=== PATIENT | male | born 1960 | race Caucasian/White ===

== ENCOUNTER 2016-04-09 05:58 | Day surgery (SDC) | payer OTHER ==
[2016-04-09] MEDS ORDERED: LIDOCAINE W/ SODIUM BICARB 0.5 ML SYR ONE (06:01)
[2016-04-09] MEDS ORDERED: Lactated Ringers 1,000 ML PRIMARY IV ONE ×2 (06:01→08:32)
[2016-04-09] MEDS ORDERED: ceFAZolin Inj 2gm (Premix) 50 ML IV ONE (06:01)
[2016-04-09] MEDS ORDERED: IPRATROPIUM/ALBUTEROL SULFATE 3 ML NEB NEB ONE ×2 (06:56→07:05)
[2016-04-09] MEDS ORDERED: NORMAL SALINE 10 ML SYRINGE FLUSH IVP PRN ×2 (06:56→09:08)
[2016-04-09] MEDS ORDERED: fentaNYL Inj 100 MCG/2 ML VIAL IVP PRN (06:56)
[2016-04-09] MEDS ORDERED: ONDANSETRON 4 MG/2 ML VIAL IVP PRN ×2 (06:56→09:08)
[2016-04-09] MEDS ORDERED: HYDROmorphone 2 MG/1 ML IVP PRN (06:56)
[2016-04-09] MEDS ORDERED: Ondansetron ODT Tab 8 MG TAB PO PRN (06:56)
[2016-04-09] MEDS ORDERED: ATROPINE SULFATE 0.4 MG/1 ML VIAL IVP PRN (06:56)
[2016-04-09] MEDS ORDERED: Lactated Ringers 1,000 ML PRIMARY IV SCH ×2 (07:00→09:15)
[2016-04-09] MEDS ORDERED: Acetaminophen 1000mg Inj 100 ML IV ONE (07:18)
[2016-04-09] MEDS ORDERED: fentaNYL Inj 250 MCG/5 ML VIAL ONE (07:30)
[2016-04-09] MEDS ORDERED: MIDAZOLAM 5 MG/1 ML ONE (07:30)
[2016-04-09] MEDS ORDERED: BETAMET ACET/BETAMET NA PH 6 MG/1 ML - 5 ML ONE (07:34)
[2016-04-09] MEDS ORDERED: EPINEPHrine Inj (1:1,000) 30mg/30ml vial ONE (07:34)
[2016-04-09] MEDS ORDERED: Ropivacaine 0.2% VIAL 20 ML ONE (07:34)
[2016-04-09] MEDS ORDERED: oxyCODONE IR Tab 5 MG TAB PO ONE ×2 (07:56→09:29)
[2016-04-09] MEDS ORDERED: KETAMINE 100 MG/1 ML - 5 ML ONE (08:07)
[2016-04-09] MEDS ORDERED: KETOROLAC 30 MG/1 ML VIAL ONE (08:40)
[2016-04-09] MEDS ORDERED: DEXAMETHASONE PF 10 MG/1 ML VIAL ONE (08:44)
[2016-04-09] MEDS ORDERED: HYDROmorphone 2 MG/1 ML ONE (08:49)
[2016-04-09] MEDS ORDERED: MORPHINE SULFATE 2 MG/1 ML IVP PRN (09:08)
[2016-04-09] MEDS ORDERED: HYDROcodone-APAP 7.5 MG-325 MG TABLET PO PRN (09:08)
[2016-04-09] MEDS ORDERED: KETOROLAC 30 MG/1 ML VIAL IVP PRN (09:08)
[2016-04-09 11:11] VITALS: RESP 18
[2016-04-09 11:13] VITALS: TEMP 97
--- NOTE | 2016-04-09 16:49 | OPS CRUTCH ---
Referral Reason: Knee Cryo Cuff O: The patient was issued a Cryo-Cuff and instructed in its proper use and care. P: No further therapy is indicated at this time. MTDD
== END 2016-04-09 10:34 | disposition home or self-care (01) ==
LOC: SDSC 05:58
PROVIDERS: ATTEND Orthopaedic Surgery
DX: S83.232A Complex tear of medial meniscus, current injury, left knee, initial encounter (principal); M65.862 Other synovitis and tenosynovitis, left lower leg
CPT/HCPCS: 29876; 29881; 94640; J0131; J0171; J0690; J0702; J1885; J2704; J2795; J3010; J7620; J1100; J1170; J2250; J7120

== ENCOUNTER 2016-04-16 10:30 | Emergency (ER) | payer SELFPAY ==
[2016-04-16] MEDS ORDERED: ONDANSETRON 4 MG/2 ML VIAL IVP ONE (10:48)
[2016-04-16] MEDS ORDERED: NORMAL SALINE 10 ML SYRINGE FLUSH IVP PRN (10:48)
[2016-04-16] MEDS ORDERED: Pantoprazole Inj 40 MG in Normal Saline Flush 10 ML IVP ONE (10:50)
[2016-04-16] MEDS: Sodium Chloride 0.9% 1,000 ML PRIMARY IV ONE ×2 (10:56→11:25)
--- NOTE | 2016-04-16 11:01 | PDOC ---
General Adult HPI - General Chief Complaint: Nausea / Vomiting / Diarrhea Stated Complaint: DIARRHEA, HIGH BLOOD PRESSURE Date Seen by Provider: 04/16/16 Time Seen by Provider: 10:45 Source: POSITIVE: Patient Exam Limitations: POSITIVE: No limitations Nurse's Notes Reviewed & Considered: Yes - History of Present Illness Initial Comment: The patient is a 55-year-old male who presents to the emergency department with blood pressure concerns and continued diarrhea. He states that he underwent a orthoscopic knee surgery per Dr. Jauregui last Friday. He states that the surgery went well and he has not really had any problems with his knee since surgery. His pain has been minimal and he has not required any pain medication for the past 2 or 3 days. He does however report that he ate some chicken noodle soup that was sent home with him from the hospital on Friday. Shortly afterward he developed upset stomach and onset of diarrhea. He states initially he was having watery black diarrhea. He has been going frequently since then. He has been able to drink water however really has not been able to eat anything since then. He tried eating a peanut butter sandwich this morning and subsequently vomited. He states that today the stool is more watery and less black. He did take some Pepto-Bismol a couple of days ago however the black stool started prior to that. He also has had some subjective fevers and chills at home. This morning he had some shaking chills. He also reports vague abdominal discomfort that comes and goes. Today he checked his blood pressure and it was varying between 110 and 140s and his pulse was elevated. He reports some shortness of breath however denies any current chest pain. He states a couple days ago he had some pain across his lower ribs. He denies any increased pain or swelling in his legs. He has not had any prior abdominal surgeries. He does report that he was started on an antibiotic for treatment of a sinus infection the day prior to his knee surgery. In addition he was having a gout flare prior to and around the time of surgery. He has been taking indomethacin for treatment of his gout. In addition he has been taking ibuprofen 800 mg 3 times a day. He is not have any known history of stomach ulcers. He does report that he has been drinking a lot of water and continues to urinate frequently. He does not have any known history of diabetes or heart disease. Have you received a tetanus shot in the past 10 years?: No - Patient Home Medications Home Medications: Home Medications Aspirin [Aspir 81] 1 tab PO BID tab 12/10/13 Cefuroxime Axetil [Cefuroxime] 500 mg PO BID #20 tab 04/08/16 HYDROcodone/APAP 7.5/325 Tab [[place] 7.5/325 Tab] 1 - 2 tab PO Q4H PRN #50 tab 04/09/16 Oxymetazoline Nasal Spr 0.05% [Afrin Nasal [place] 0.05%] 45 spray NASAL BID 04/09 Ibuprofen 800 mg PO TID PRN 04/16/16 Indomethacin 50 mg PO TID 04/16/16 Omeprazole 20 mg PO BID #30 cap 04/16/16 - Patient Allergies Allergies/Adverse Reactions: Allergies Allergy/AdvReac Type Severity Reaction Status Date / Time No Known Allergies Allergy Verified 04/16/16 10:40 Past Medical History - heen HEENT History: Chipped or Loose Teeth Additional HEENT History: PT MISSING SEVERAL TEETH/RIGHT SIDE LOWER CHIPPED TOOTH WITH CAVITIES. Cardiovascular History: Other (please comment) Additional Cardiovasular History: PT WAS TOLD 2 YRS AGO THAT THE ANESTHESIA SAW A "BLIP" ON THE SCREEN AND TOLD HAD A KS BUT NOTHING ELSE WAS DONE AND NO REFERRAL TO HEART DOCTOR. Respiratory History: Snoring Additional Respiratory History: PNEUMONIA IN THE PAST USUALLY AFTER THE WINTER. STATES HAD CHEST COLD OF SOME KIND LAST WEEK. STILL A LITTLE COUGH RESIDUAL. Gastrointestinal History: Denies History Genitourinary History: Denies History Endocrine History: Denies History Musculoskeletal History: Arthritis, Back Pain Prosthesis or Implant: No Additional Musculoskeletal History: LUMBAR BACK SURGERY Neurological History: Denies History Blood Disorders: Denies History Psychiatric History: Denies History History of Sexually Transmitted Diseases: No Cancer History: Denies History History of MDRO: No History of Other Communicable Diseases: No Tobacco Use: Current Every Day Smoker (1 pack per day) Alcohol Use: Occasionally Substance Use Type: None Previous Surgical History: Yes Type / Date of Surgery: LUMBAR DISC SURGERY / RIGHT KNEE SCOPE/ ABSCESS OF BUTTOCKS/TONSILS/L RCR Anesthesia Reactions: No Malignant Hyperthermia: No Significant Family History: Heart disease Additional Family History: Father and Brother both of [place] Past Medical History Reviewed: Reviewed - No Changes ROS - Limitations ROS Limitations: No Limitations Constitution: REPORTS: Chills, Fever Cardiovascular: REPORTS: Chest Pain (No current chest pain, he does report some pain across his ribs off-and-on the past couple days), Blood Pressure Problem ( Blood pressure was elevated at home). DENIES: Heart Racing, Heart Palpitations , Edema Respiratory: REPORTS: Shortness Of Breath. DENIES: Cough Non Productive, Cough Productive, Hurts To Breathe Neurological: REPORTS: Headache (Mild headache) Gastrointestinal: REPORTS: Abdominal Pain, Nausea, Vomitting (1 today), Diarrhea, Black Stools (Stools have had black appearing chunks mixed in the watery stool, more watery and yellow today) Endocrine: REPORTS: Fatigue Musculoskeletal: DENIES: Lower Extremity Swelling Genitourinary: DENIES: Dysuria, Difficulty Urinating Eyes: REPORTS: Vision Changes (He reports some blurred vision recently) ENT: REPORTS: Denies Symptoms, Other (Problems with sinus infection and congestion currently on antibiotics and Mucinex) Skin: DENIES: Rash General Adult Exam - General Appearance General Appearance: POSITIVE: Alert, Cooperative, No Acute Distress - HEENT HEENT: POSITIVE: Head Inspection Nml, Eyes Inspection Nml, Ears Inspection Nml, PERRL, EOMI - Neck Neck: POSITIVE: Normal Inspection. NEGATIVE: Lymphadenopathy - Respiratory Respiratory: POSITIVE: No Respiratory Distress, Breath Sounds Normal - Cardiovascular Cardiovascular: POSITIVE: Regular Rate & Rhythm, No Murmur Peripheral Pulses: Dorsalis-pedis (R): 2+, Dorsalis-pedis (L): 2+ - Abdomen Abdomen: Soft: (All Quadrants), Normal Bowel Sounds: (All Quadrants), No Guarding: (All Quadrants), No Rebound: (All Quadrants), No Palpabale Mass: (All Quadrants), No Distention: (All Quadrants) Additional Abdominal Details: Does have some mild tenderness in the left lower quadrant with no palpable mass , no guarding or rebound tenderness - Skin Skin: POSITIVE: Normal Color, No Rash - Extremities Extremity: Normal ROM: (All Extremities), Normal Inspection: (All Extremities), Joint Effusion: (RUE) Additional Extremities Details: Examination the left leg reveals bandages in place from recent arthroscopic surgery, there is no surrounding erythema or induration, some mild bruising extending up to the medial thigh - Neurological / Psychological Neurological: 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 He does however have an ascending thoracic aortic aneurysm measuring 5.3 cm with no evidence of dissection or rupture. CT of the abdomen and pelvis reveals a few scattered diverticulum with no evidence of acute diverticulitis or any other acute abnormality per radiologist. Lab Results Reviewed: Yes Lab Results:: Laboratory Results 04/16/16 04/16/16 Range/Units 11:07 12:17 WBC 22.76 H (4.8-10.8) 10^3/uL RBC 5.49 (4.70-6.10) 10^6/uL Hgb 16.9 (14.0-18.0) g/dL Hct 46.7 (42.0-52.0) % MCV 85.1 (80-90) FL MCH 30.8 (27-31) PG MCHC 36.2 (33-37) g/dL RDW Std Deviation 42.2 (39-50) fL RDW Coeff of Basil 13.8 (11.5-14.5) % Plt Count 204 (140-350) 10*3/uL MPV 10.2 (7.4-12.2) FL Immature Gran % (Auto) 0.7 (0-5) % Neut % (Auto) 81.6 H (50-80) % Lymph % (Auto) 5.1 L (10-50) % [place] % (Auto) 12.0 (5-15) % Eos % (Auto) 0.5 (0-8) % Baso % (Auto) 0.1 (0-1) % Immature Gran # (Auto) 0.17 10*3/UL Neut # (Auto) 18.53 10*3/UL Lymph # (Auto) 1.17 10*3/uL [place] # (Auto) 2.74 H (0.3-0.8) 10*3/UL Eos # (Auto) 0.12 10*3/UL Baso # (Auto) 0.03 10*3/UL WBC Morphology Comment Normal morphology (NORM) Plt Morphology Comment Normal morphology (NORM) RBC Morph Comment Normal morphology (NORM) D-Dimer 0.64 H (0.00-0.59) mg/L Sodium 130 L (135-145) meq/L Potassium 4.0 (3.8-5.2) meq/L Chloride 101 (98-112) meq/L Carbon Dioxide 17 L (23-33) meq/L Anion Gap 12 (5-20) BUN 17 (7-22) mg/dL Creatinine 1.0 (0.70-1.50) mg/dL Estimated GFR > 60 (>60 ml/min/1.73m(2)) BUN/Creatinine Ratio 17.00 (6-20) Glucose 100 (78-110) mg/dL Calculated Osmolality 271.0 (267-292) mOsm/kg Lactic Acid 1.5 (0.70-2.10) MMOL/L Calcium 9.3 (8.7-10.7) mg/dL Magnesium 1.7 (1.6-2.4) mg/dL Total Bilirubin 1.6 H (0.3-1.2) mg/dL AST 34 (21-57) IU/L ALT 37 (21-72) IU/L Alkaline Phosphatase 74 (38-126) IU/L Troponin I < 0.012 (< 0.040) ng/mL C-Reactive Protein 5.7 H (0.0-0.9) mg/dL Total Protein 7.7 (6.1-8.0) g/dL Albumin 4.4 (3.5-4.8) g/dL Globulin 3.3 (2.50-4.10) g/dL Albumin/Globulin Ratio 1.30 (1.3-2.0) mg/g Amylase 111 H (30-110) U/L Lipase 127 (23-300) IU/L Ur Collection Type Voided specimen Urine Color Yellow Urine Clarity Clear (CLEAR) Urine pH 5.5 (5.0-8.5) Ur Specific [place] <=1.005 (1.005-1.030) Urine Protein Negative (NEG) mg/dl Urine Glucose (UA) Negative (NEG) mg/dL Urine Ketones Negative (NEG) Urine Occult Blood Trace-intact H (NEG) Urine Nitrate Negative (NEG) Urine Bilirubin Negative (NEG) Urine Urobilinogen 0.2 (0.2) EU/dL Ur Leukocyte Esterase Negative (NEG) Urine RBC 0-1 (NONE) /hpf Urine WBC 0-1 (NONE) Ur Squamous Epith Cells Few (NONE) Ur Renal Epithelial Cell None (NONE) Urine Crystals None Urine Bacteria None (NONE) Urine Casts None (NONE) Urine Mucus None (NONE) Urine Trichomonas None (NONE) Urine Yeast None (NONE) Ur Culture Indicated? Culture not set - Patient's Progress MDM / ED Course: Blood cultures and lactate were obtained with IV start. The patient received 1 L bolus of normal saline as well as Zofran 4 mg IV and Protonix 40 mg IV. Bedside blood sugar was 82. He was having some continued headache and received morphine 2 mg IV. His headache resolved and overall after fluids and Zofran he was feeling significantly better. Lab work revealed a significantly elevated white count at 22,000 and his sodium is low at 130. He was unable to provide a stool specimen here in the emergency department. CT scan was done for PE protocol secondary to elevated d-dimer, recent surgery and tachycardia associated with shortness of breath on arrival. This was negative for PE however did reveal an incidental descending thoracic aneurysm measuring 5.3 cm with no evidence of rupture or dissection. CT scan of the abdomen and pelvis revealed a few scattered diverticulum with no evidence of acute diverticulitis or any other acute abnormality per radiologist. These findings were discussed with the patient. Because of his significantly elevated white count, clinical dehydration and hyponatremia I did recommend that the patient be admitted to the hospital. The patient stated that "that was not going to happen". I did discuss the patient with Dr. Álvarez who is the patient's primary care physician. He will be able to see the patient in follow-up in the next couple of days. Stool studies including C. difficile, Giardia, cryptosporidium, stool culture will be obtained as an outpatient. Antibiotics will be held pending these studies. In addition the patient likely has some component of gastritis related to his use of indomethacin combined with ibuprofen. He was advised to discontinue this combination and take only ibuprofen or only indomethacin if needed with food. He was also started on omeprazole 20 mg twice a day for 2 weeks. He is advised to return to the emergency room if he develops increased abdominal pain, dehydration, any worsening or change in symptoms. He will follow-up with Dr. Álvarez in the next couple of days for reevaluation as well as for referral for his thoracic aortic aneurysm. - Consult Counseled: POSITIVE: Patient, Family, RE: Lab Results, RE: Radiology Results, RE : DX, RE: Need for F/U Patient Care Time - Estimated PCT Patient Care Time (In Minutes): 50 Vital Signs - Recent Vital Signs Vital Signs: Vital Signs (Last 8 hours) Temp Pulse Resp BP BP Pulse Ox 04/16/16 11:31 100 129/76 90 04/16/16 10:35 98.9 F 140 H 22 148/121 93 - VS Reviewed Vital Signs Reviewed: Yes Discharge Clinical Impression: Abdominal pain, Diarrhea, Dehydration, Gastritis, Leukocytosis, Hyponatremia, Thoracic aortic aneurysm Condition: Fair Prescriptions / Orders: Omeprazole 20 mg PO BID #30 cap Patient Instructions Given at Discharge: Gastritis (ED), Dehydration (ED), Thoracic Aortic Aneurysm (ED), Acute Diarrhea (ED), Acute Abdominal Pain (ED) Additional Instructions: The cause of your current diarrhea and abdominal pain remains unclear. It is possible her some component of gastritis and ulcer related to taking the Indocin along with ibuprofen. In addition it is possible there is some type of bacterial infection causing the diarrhea and this will be tested for with the stool study. You should bring your stool back to the hospital for evaluation. There was also some evidence of dehydration and low sodium likely related to the increased diarrhea. He will be started on omeprazole 20 mg twice a day which is a strong an acid medicine. You may require further antibiotic treatment depending on what your stool cultures show. I did recommend that she be admitted to the hospital for continued treatment. Since you are going home I would strongly encourage you to return to the emergency room if you develop increased abdominal pain, worsening dehydration, fever or any other worsening symptoms. I have spoken with Dr. Álvarez and he will be expecting to see you for follow-up sometime in the next couple of days. The CAT scan of your chest did not reveal any evidence of blood clot. You did however have a thoracic aortic aneurysm which is a dilation of the blood vessel coming out of your heart. This may require surgical repair given its size. Dr. Álvarez will be referring you to a specialist to have this evaluated. This finding does not have anything to do with your current symptoms. You should return to the emergency room if he developed chest pain, back pain. Follow Up With: SUNSHINE ÁLVAREZ [Primary Care Provider] -
--- NOTE | 2016-04-16 11:10 | EKG ---
[address] [address] Measurements Intervals [place] Rate: 101 P: 6 AR: 140 QRS: 55 QRSD: 88 T: 48 QT: 324 QTc: 382 Interpretive Statements SINUS TACHYCARDIA NONSPECIFIC T-WAVE ABNORMALITY ABNORMAL RHYTHM ECG Compared to ECG 03/25/2016 09:12:38 T-wave abnormality now present Sinus rhythm no longer present Electronically Signed On 04-16-16 11:24:02 [facility] by Brock Mitchell [email or web address]
[2016-04-16 11:16] VITALS: RESP 22; TEMP 98.9
[2016-04-16 11:16] LABS: BASOPHILS # (AUTO) 0.03 10*3/UL; BASOPHILS % (AUTO) 0.1 % (0-1); EOSINOPHILS % (AUTO) 0.5 % (0-8); HEMATOCRIT 46.7 % (42.0-52.0); HEMOGLOBIN 16.9 g/dL (14.0-18.0); IMM GRAN % (AUTO) 0.7 % (0-5); IMM GRAN# (AUTO) 0.17 10*3/UL; LYMPHOCYTES # (AUTO) 1.17 10*3/uL; LYMPHOCYTES % (AUTO) 5.1 % (10-50); MEAN CORPUSCULAR HEMOGLOBIN 30.8 PG (27-31); MEAN CORPUSCULAR HGB CONC 36.2 g/dL (33-37); MEAN PLATELET VOLUME 10.2 FL (7.4-12.2); MONOCYTES # (AUTO) 2.74 10*3/UL (0.3-0.8); NEUTROPHILS # (AUTO) 18.53 10*3/UL; NEUTROPHILS % (AUTO) 81.6 % (50-80); RDW COEFFICIENT OF VARIATION 13.8 % (11.5-14.5); RED BLOOD COUNT 5.49 10^6/uL (4.70-6.10); WHITE BLOOD COUNT 22.76 10^3/uL (4.8-10.8)
[2016-04-16] MEDS ORDERED: MORPHINE SULFATE 2 MG/1 ML IVP ONE (11:23)
[2016-04-16 11:27] LABS: AMYLASE 111 U/L (30-110); ASPARTATE AMINO TRANSFERASE 34 IU/L (21-57); BILIRUBIN,TOTAL 1.6 mg/dL (0.3-1.2); BLOOD UREA NITROGEN 17 mg/dL (7-22); C-REACTIVE PROTEIN 5.7 mg/dL (0.0-0.9); CALCIUM 9.3 mg/dL (8.7-10.7); CHLORIDE 101 meq/L (98-112); EST GLOMERULAR FILTRATION > 60 (>60 ml/min/1.73m(2)); GLUCOSE 100 mg/dL (78-110); LACTATE 1.5 MMOL/L (0.70-2.10); MAGNESIUM 1.7 mg/dL (1.6-2.4); SODIUM 130 meq/L (135-145); TOTAL PROTEIN 7.7 g/dL (6.1-8.0)
[2016-04-16 11:33] LABS: PLATELET MORPHOLOGY COMMENT NORMAL MORPHOLOGY (NORM)
[2016-04-16 12:23] LABS: BILIRUBIN,URINE NEGATIVE (NEG); CLARITY,URINE CLEAR (CLEAR); GLUCOSE, URINE (UA) NEGATIVE (NEG); LEUKOCYTE ESTERASE ,URINE NEGATIVE (NEG); NITRATE,URINE NEGATIVE (NEG); OCCULT BLOOD,URINE Trace-intact (NEG); PH,URINE 5.5 (5.0-8.5); PROTEIN,URINE NEGATIVE (NEG); UROBILINOGEN,URINE 0.2 EU/dL (0.2)
[2016-04-16 12:39] LABS: URINE SAMPLE TYPE VOIDED SPECIMEN
[2016-04-16 12:40] LABS: RBC,URINE 0-1 /hpf; SQUAMOUS EPITHELIAL CELL,UR FEW; WBC,URINE 0-1
--- NOTE | 2016-04-16 13:17 | DI ---
History: Abdominal pain, leukocytosis, diarrhea. Procedure: Study performed in axial projection from the heart to the pubic symphysis. The patient rec eived intravenously. Dose report CT DI of 19.2, DLP 1054. Prior study: None. Findings: No pulmonary nodules are identified. There is a metallic foreign object in the left angely us muscle, possibly surgical or foreign object. No focal bony lesions identified. Left-sided fat only inguinal hernia seen on multiple images. There are a few colonic diverticula. No evidence of diverticular abscess identified. No free air obse rved. Terminal ileum is unremarkable. Appendix is not seen with confidence. No evidence of inflammation rig ht lower quadrant. Small bowel loops normal Liver spleen adrenal glands pancreas unremarkable. Gallbladder free of inflammation or visible fillin g defect. Both kidneys appear normal. No mass stone or obstruction identified. Small esophageal hiatal hernia. Impression: No evidence of inflammation or acute process. Small esophageal hiatal hernia Small metallic foreign object in the left upper thigh. Left fat only inguinal hernia
--- NOTE | 2016-04-16 13:29 | DI ---
History: Shortness of breath, elevated d-dimer. The study was performed in axial projection with coronal reconstruction from the data set. Contrast b olus with rapid sequence imaging and MDP. Dose profile: See abdomen pelvis CT scan report Findings: There is clear evidence of an ascending aortic aneurysm. Maximum sagittal diameter this rou nd aneurysm is 5.3 cm. No dissection component observed. The descending thoracic aorta appears normal in caliber. Regarding the pulmonary arteries, no embolic material is identified on either side. Regarding lung window settings, no focal infiltration is identified nor is a nodule observed. The heart is not enlarged. No mediastinal adenopathy present. Impression: Aneurysmal dilatation of the ascending thoracic aorta. Suggest elective consultation with thoracic surgeon. No CT evidence of pulmonary emboli or focal pulmonary parenchymal abnormalities. Bony structures are intact
[2016-04-16] MEDS ORDERED: Sodium Chloride 0.9% 1,000 ML ONE (17:59)
== END 2016-04-16 13:49 | disposition home or self-care (01) ==
LOC: ER 10:30
DX: K29.00 Acute gastritis without bleeding (principal); R11.2 Nausea with vomiting, unspecified; I10 Essential (primary) hypertension; R51 Headache; R10.84 Generalized abdominal pain; E87.1 Hypo-osmolality and hyponatremia; E86.0 Dehydration; I71.2 Thoracic aortic aneurysm, without rupture; D72.829 Elevated white blood cell count, unspecified; R19.7 Diarrhea, unspecified
CPT/HCPCS: 71275; 74177; 80053; 81001; 81003; 82150; 82948; 83605; 83690; 83735; 84484; 85025; 85379; 86140; 87040; 87046; 87328; 87329; 87493; 93005; 93010; 96361; 96374; 96375; 99284; J2270; J2405; J3490; J7030

== ENCOUNTER 2016-07-29 12:55 | Emergency (ER) | payer SELFPAY ==
[2016-07-29] MEDS ORDERED: HYDRALAZINE 20 MG/1 ML IVP ONE (13:14)
[2016-07-29] MEDS ORDERED: Sodium Chloride 0.9% 1,000 ML PRIMARY IV ONE (13:18)
[2016-07-29 13:20] LABS: BASOPHILS # (AUTO) 0.08 10*3/UL; BASOPHILS % (AUTO) 0.6 % (0-1); EOSINOPHILS # (AUTO) 0.12 10*3/UL; EOSINOPHILS % (AUTO) 0.9 % (0-8); HEMATOCRIT 47.4 % (42.0-52.0); HEMOGLOBIN 16.1 g/dL (14.0-18.0); LYMPHOCYTES # (AUTO) 3.26 10*3/uL; MEAN CORPUSCULAR HEMOGLOBIN 30.4 PG (27-31); MEAN CORPUSCULAR VOLUME 89.4 FL (80-90); MEAN PLATELET VOLUME 9.7 FL (7.4-12.2); MONOCYTES # (AUTO) 1.28 10*3/UL (0.3-0.8); MONOCYTES % (AUTO) 9.7 % (5-15); NEUTROPHILS # (AUTO) 8.27 10*3/UL; NEUTROPHILS % (AUTO) 62.6 % (50-80)
[2016-07-29 13:21] VITALS: RESP 18; TEMP 96.1
[2016-07-29 13:21] LABS: PLATELET MORPHOLOGY COMMENT NORMAL MORPHOLOGY (NORM); RBC MORPHOLOGY COMMENT NORMAL MORPHOLOGY (NORM); WBC MORPHOLOGY COMMENT NORMAL MORPHOLOGY (NORM)
[2016-07-29 13:27] LABS: BLOOD UREA NITROGEN 13 mg/dL (7-22); BUN/CREATININE RATIO 14.44 (6-20); CALCIUM 9.2 mg/dL (8.7-10.7); EST GLOMERULAR FILTRATION > 60 (>60 ml/min/1.73m(2))
--- NOTE | 2016-07-29 13:55 | DI ---
PA /LATERAL CHEST X-RAY, 07/29/2016 1:11 PM : Clinical History: Cough. Previous Exam: 09/07/2013. There is no acute soft tissue or bony abnormality. Heart size is normal. Lungs are clear. Mediastinal structures are normal. There are no pulmonary nodules. Reading: Normal chest x-ray.
[2016-07-29 14:08] LABS: BILIRUBIN,URINE NEGATIVE (NEG); CLARITY,URINE CLEAR (CLEAR); COLOR,URINE YELLOW; GLUCOSE, URINE (UA) NEGATIVE (NEG); NITRATE,URINE NEGATIVE (NEG); OCCULT BLOOD,URINE NEGATIVE (NEG); PH,URINE 5.5 (5.0-8.5); PROTEIN,URINE NEGATIVE (NEG); UROBILINOGEN,URINE 0.2 EU/dL (0.2)
[2016-07-29 14:09] LABS: URINE SAMPLE TYPE VOID
--- NOTE | 2016-07-29 14:25 | DI ---
CT SINUS SCAN, 07/29/2016 1:11 PM : Clinical History: Sinus pressure/pain. Sinus drainage. Previous Exam: None at this facility. Scans are obtained from the base of the skull through the paranasal sinuses in the axial plane using very low dose with high resolution technique. Direct coronal reformatted images are generated perpend icular to the hard palate. The frontal, ethmoid, maxillary, and sphenoid sinuses all show mucosal thickening indicating sinusiti s. No air-fluid levels are present. The bony septum is midline. The middle and inferior turbinates ar e enlarged and there is a right janna bullosa. Both infundibula, the hiatus semilunaris, and the mid dle meati are opacified. The petrous pyramids and mastoid air cells are intact. READIN. Pansinusitis without air-fluid levels to indicate acute sinusitis. 2. The middle meati, infundibula, frontal recesses, sphenoethmoid recesses, and both hiatus semiluna ris are occluded. The bony septum is midline.
[2016-07-29] MEDS ORDERED: Amoxicill/Clav 875/125mg Tab 1 TAB TAB PO ONE (14:37)
--- NOTE | 2016-07-29 17:23 | PDOC ---
General Adult HPI - General Chief Complaint: Palpitations Stated Complaint: ELEVATED BP, SHORTNESS OF BREATH Date Seen by Provider: 07/29/16 Time Seen by Provider: 13:00 Source: POSITIVE: Patient - History of Present Illness Initial Comment: Patient is a very nice 55-year-old gentleman who presents to the emergency department complaining of multiple issues. First of all he has severe sinus pressure and tenderness and has been feeling more more poorly with increased postnasal drip and sinus drainage down into his lungs. He's also been having substantial cough is not sure if it's from all the drainage from his sinuses or if it's coming from his chest. He also is noted that his blood pressures been a bit higher than normal over the last few days. Otherwise he is denying any specific chest pain, shortness of breath, nausea vomiting or other substantial symptoms. He was recently diagnosed sinus infection started on Ceftin and given metronidazole as he had a recent bout of C. difficile colitis.. Have you received a tetanus shot in the past 10 years?: Unknown - Patient Home Medications Home Medications: Home Medications Atenolol 1 tab PO DAILY tab 04/22/16 Cefuroxime Axetil [Cefuroxime] 500 mg PO BID #20 tab 07/24/16 Guaifenesin/Codeine Phosphate [Codeine-Guaifen 10-100 Mg/5 Ml] 5 ml PO Q4H #240 ml 07/24/16 Methylprednisolone [Medrol] 4 mg PO 3-4XD #1 packet 07/24/16 Metronidazole [Flagyl] 500 mg PO Q12H #20 tab 07/24/16 Amox Tr/Potassium Clavulanate [Augmentin 875-125 Tablet] 1 each PO BID #30 tablet 07/29/16 Budesonide/Formoterol Fumarate [Symbicort 160-4.5 Mcg Inhaler] 10.2 gm IH BID - Patient Allergies Allergies/Adverse Reactions: Allergies Allergy/AdvReac Type Severity Reaction Status Date / Time No Known Allergies Allergy Verified 07/29/16 12:59 Past Medical History - heen HEENT History: Chipped or Loose Teeth Additional HEENT History: PT MISSING SEVERAL TEETH/RIGHT SIDE LOWER CHIPPED TOOTH WITH CAVITIES. Cardiovascular History: Other (please comment) Additional Cardiovasular History: PT WAS TOLD 2 YRS AGO THAT THE ANESTHESIA SAW A "BLIP" ON THE SCREEN AND TOLD HAD A DE BUT NOTHING ELSE WAS DONE AND NO REFERRAL TO HEART DOCTOR. ABDOMINAL AORTIC ANEURISM Respiratory History: Snoring Additional Respiratory History: PNEUMONIA IN THE PAST USUALLY AFTER THE WINTER. STATES HAD CHEST COLD OF SOME KIND LAST WEEK. STILL A LITTLE COUGH RESIDUAL. Gastrointestinal History: Denies History Genitourinary History: Denies History Endocrine History: Denies History Musculoskeletal History: Arthritis, Back Pain Prosthesis or Implant: No Additional Musculoskeletal History: LUMBAR BACK SURGERY Neurological History: Denies History Blood Disorders: Denies History Psychiatric History: Denies History History of Sexually Transmitted Diseases: No Cancer History: Denies History In Past Year Been Physically Harmed or Verbally Threatened: No History of MDRO: No History of Other Communicable Diseases: No Tobacco Use: Current Every Day Smoker Alcohol Use: Occasionally Substance Use Type: None Previous Surgical History: Yes Type / Date of Surgery: LUMBAR DISC SURGERY / RIGHT KNEE SCOPE/ ABSCESS OF BUTTOCKS/TONSILS/L RCR Anesthesia Reactions: No Malignant Hyperthermia: No Significant Family History: Heart disease Additional Family History: Father and Brother both of [place] Past Medical History Reviewed: Reviewed - No Changes ROS - Limitations ROS Limitations: No Limitations Constitution: DENIES: Fever Neurological: REPORTS: Denies Neuro Symptoms Gastrointestinal: REPORTS: Denies GI Symptoms Musculoskeletal: REPORTS: Denies MS Symptoms General Adult Exam - General Appearance General Appearance: POSITIVE: Alert, Cooperative, No Acute Distress - HEENT HEENT: POSITIVE: Purulent Nasal Drainage - Neck Neck: POSITIVE: Normal Inspection - Respiratory Respiratory: POSITIVE: No Respiratory Distress - Cardiovascular Cardiovascular: POSITIVE: Regular Rate & Rhythm, Bradycardia - Abdomen Abdomen: Soft: (All Quadrants), Normal Bowel Sounds: (All Quadrants), Denies Tenderness: (All Quadrants) - Back Back: POSITIVE: Normal Inspection - Skin Skin: POSITIVE: Normal Color, Warm - Neurological / Psychological Neurological: POSITIVE: Affect Apporpriate, Oriented X3 General Adult Progress - Results Reviewed by me Xrays/CTs/US Reviewed by me: Yes Radiology Findings: Chest x-ray is benign CT scan of the sinuses shows pansinusitis. Also some nasal turbinate abnormalities. Lab Results Reviewed: Yes Lab Results:: Laboratory Results 07/29/16 07/29/16 Range/Units 13:17 14:04 WBC 13.21 H (4.8-10.8) 10^3/uL RBC 5.30 (4.70-6.10) 10^6/uL Hgb 16.1 (14.0-18.0) g/dL Hct 47.4 (42.0-52.0) % MCV 89.4 (80-90) FL MCH 30.4 (27-31) PG MCHC 34.0 (33-37) g/dL RDW Std Deviation 46.0 (39-50) fL RDW Coeff of Basil 14.2 (11.5-14.5) % Plt Count 290 (140-350) 10*3/uL MPV 9.7 (7.4-12.2) FL Immature Gran % (Auto) 1.5 (0-5) % Neut % (Auto) 62.6 (50-80) % Lymph % (Auto) 24.7 (10-50) % [place] % (Auto) 9.7 (5-15) % Eos % (Auto) 0.9 (0-8) % Baso % (Auto) 0.6 (0-1) % Immature Gran # (Auto) 0.20 10*3/UL Neut # (Auto) 8.27 10*3/UL Lymph # (Auto) 3.26 10*3/uL [place] # (Auto) 1.28 H (0.3-0.8) 10*3/UL Eos # (Auto) 0.12 10*3/UL Baso # (Auto) 0.08 10*3/UL WBC Morphology Comment Normal morphology (NORM) Plt Morphology Comment Normal morphology (NORM) RBC Morph Comment Normal morphology (NORM) Sodium 137 (135-145) meq/L Potassium 4.2 (3.8-5.2) meq/L Chloride 102 (98-112) meq/L Carbon Dioxide 26 (23-33) meq/L Anion Gap 9 (5-20) BUN 13 (7-22) mg/dL Creatinine 0.9 (0.70-1.50) mg/dL Estimated GFR > 60 (>60 ml/min/1.73m(2)) BUN/Creatinine Ratio 14.44 (6-20) Glucose 87 (78-110) mg/dL Calculated Osmolality 282.0 (267-292) mOsm/kg Calcium 9.2 (8.7-10.7) mg/dL Total Bilirubin 0.5 (0.3-1.2) mg/dL AST 36 (21-57) IU/L ALT 40 (21-72) IU/L Alkaline Phosphatase 65 (38-126) IU/L Troponin I < 0.012 (< 0.040) ng/mL Total Protein 7.6 (6.1-8.0) g/dL Albumin 4.0 (3.5-4.8) g/dL Globulin 3.6 (2.50-4.10) g/dL Albumin/Globulin Ratio 1.10 L (1.3-2.0) mg/g Ur Collection Type Void Urine Color Yellow Urine Clarity Clear (CLEAR) Urine pH 5.5 (5.0-8.5) Ur Specific [place] <=1.005 (1.005-1.030) Urine Protein Negative (NEG) mg/dl Urine Glucose (UA) Negative (NEG) mg/dL Urine Ketones Negative (NEG) Urine Occult Blood Negative (NEG) Urine Nitrate Negative (NEG) Urine Bilirubin Negative (NEG) Urine Urobilinogen 0.2 (0.2) EU/dL Ur Leukocyte Esterase Negative (NEG) Ur Culture Indicated? Culture not set - Patient's Progress MDM / ED Course: This patient has a a few issues. First of all he has a significant pansinusitis and has been taking some Ceftin for a while and this is not curing him. I would switch him to Augmentin as he does not believe he's tried this yet. This would be a good first line agent for sinusitis. He's in a continuous the metronidazole to avoid C. difficile colitis. He's in a see his primary care doctor in the next few days and consider ENT consultation. He will benefit from ENT evaluation as he likely is gout need sinus surgery some point. He had bradycardia coming in with heart rates in the 40s though he was asymptomatic from this. 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 He understands that he may have some reflex elevation in his blood pressure the next few days and he may need to be seen by his primary care provider sooner rather than later to start a different blood pressure medicine. After his initial blood pressure here in the hospital he had normal blood pressures for the rest of his ED stay. We discussed his smoking leg I've offered Chantix he is not ready to quit yet I' ve encouraged him to contemplate it and to discuss it with his primary care provider every visit. Patient Care Time - Estimated PCT Patient Care Time (In Minutes): 40 Vital Signs - Recent Vital Signs Vital Signs: Vital Signs (Last 8 hours) Temp Pulse Resp BP Pulse Ox 07/29/16 12:58 96.1 F L 54 L 18 161/81 96 - VS Reviewed Vital Signs Reviewed: Yes Discharge Clinical Impression: Acute bacterial rhinosinusitis, Bradycardia Hypertension Qualifiers: Hypertension type: unspecified secondary hypertension Qualifier Code: (I15.9) Secondary hypertension, unspecified Discharge Disposition: Discharged to Home Condition: Stable Prescriptions / Orders: Amox Tr/Potassium Clavulanate [Augmentin 875-125 Tablet] 1 each PO BID #30 tablet Patient Instructions Given at Discharge: Rhinosinusitis (ED), Bradycardia (ED) , Hypertension (ED) Additional Instructions: Take Augmentin as prescribed also continue taking your metronidazole given your recent history of Clostridium difficile diarrhea. Follow-up with your primary care provider in the next 1-2 days to discuss your severe pansinusitis as well as antibiotic use and history of C. difficile as well as your bradycardia and discontinuation of atenolol as well as some elevated blood pressures. Follow-up with ear nose and throat surgeon as soon as possible to have your CT scan reviewed and to consider whether surgical options are appropriate for you and your sinus if occult ease Contemplate stopping smoking if you become willing to try please contact the [place] tobacco quit line or your primary care provider to consider the use of Chantix to increase your success Stop taking atenolol Follow Up With: SUNSHINE ÁLVAREZ [Primary Care Provider] -
--- NOTE | 2016-07-30 15:57 | EKG ---
[address] [address] Measurements Intervals Transfer Rate: 47 P: 66 TX: 174 QRS: 71 QRSD: 96 T: 66 QT: 413 QTc: 377 Interpretive Statements SINUS BRADYCARDIA Compared to ECG 04/16/2016 11:08:24 Sinus tachycardia no longer present T-wave abnormality no longer present Electronically Signed On 07-31-16 08:09:19 MDT by Trevin Hills MD [email or web address]
== END 2016-07-29 14:59 | disposition home or self-care (01) ==
LOC: ER 12:55
DX: J01.90 Acute sinusitis, unspecified (principal); R00.1 Bradycardia, unspecified; I10 Essential (primary) hypertension
CPT/HCPCS: 70486; 71020; 80053; 81003; 84484; 85025; 93005; 93010; 99283; J0360; J7030

== ENCOUNTER 2017-03-12 19:15 | Inpatient (IN) ==
--- NOTE | 2017-03-12 20:59 | PDOC ---
Neuro Symptoms / Deficit HPI - General Chief Complaint: Neurological Complaints Stated Complaint: WAS SEEN EARLIER AND FAMILY CONCERNED WITH TIA Date Seen by Provider: 03/12/17 Time Seen by Provider: 19:15 Source: POSITIVE: Patient, Spouse, Old records Exam Limitations: POSITIVE: No limitations Nurse's Notes Reviewed & Considered: Yes - History of Present Illness Initial Comments: The patient is a 56-year-old male. Patient was seen in our emergency room at approximately 1100 stating that approximately 24 hours prior to that visit he developed "numbness" to the left side of his face and left arm, the symptoms had been intermittently present since. He states that yesterday he had numbness to the left side of his tongue as well. Patient states he took two 81 mg aspirin tablets this morning. He did not have any difficulty speaking. No focal motor deficits. No difficulty walking. He states he has had a mild circumferential headache. Approximately at 9 AM this morning, 2 hours prior to presenting to the emergency room, he developed some midsternal chest pain which had resolved upon presentation to the emergency room this morning. The patient has a history of a descending aortic aneurysm detected on CT scanning done 04/16. At that time the aneurysm measured 5.3 cm. No dissection. This is being followed by Dr. Murphy, director of mechanical engineering in [place]. He states he's had a recent echocardiogram in the aneurysm appeared stable. Patient states he also had a cardiac stress test done approximately one year ago in the patient states he believes this was normal. The patient has a long-standing history of tobacco abuse and states he is presently smoking about repacks of cigarettes per day. He complains of a mild circumferential headache. CT scan of the head this morning was normal. MRI of the brain without contrast this morning showed 2 small foci of abdomen normally restricted diffusion involving the right frontal parietal and the right temporal area compatible with small ischemic infarcts, according to radiologist. Patient's electrocardiogram and all laboratory studies, including troponin and d-dimer were normal this morning. Admission was advised this morning, but the patient declined and signed out AGAINST MEDICAL ADVICE. He states that around 1900 today he redeveloped "tingling" to the left face, and his family encouraged him to be reevaluated, and consequently the patient returns to the emergency room. Body Location Affected: REPORTS: Head, Chest, Other (As above) Timing: REPORTS: Abrupt, Intermittent, Other Duration: >24 hours (As above intermittently) Severity: Moderate Quality: REPORTS: "Pain" (Patient had some substernal chest pain this morning; none since 1100) Context: DENIES: Insect Bite, Tick Bite, Falling Injury, Head Injury, Other Character of Deficit(s): REPORTS: Facial (Numbness to left side of face, left arm and left side of tongue), Altered Sensation Associated Symptoms: REPORTS: Headache (Earlier this morning) Usual Ability to Walk/Stand: REPORTS: Walks w/o Assistance Usual Cognition: REPORTS: Alert & Oriented x3 Similar Symptoms Previously: Yes (as above) Recently seen/treated/hospitalized: Yes Any Prior Injuries Related to Current Complaint?: No - Patient Home Medications Home Medications: Home Medications Atenolol 1 tab PO DAILY #90 tab 10/23/16 Aspirin 81 mg PO DAILY 03/12/17 Guaifenesin [Mucinex] 600 mg PO Q12H PRN 03/12/17 Loratadine 10 mg PO DAILY 03/12/17 Multivitamin [Men's Multi-Vitamin] 1 ea PO DAILY 03/12/17 - Patient Allergies Allergies/Adverse Reactions: Allergies 3 Allergy/AdvReac Type Severity Reaction Status Date / Time No Known Allergies Allergy Verified 03/12/17 19:37 Past Medical History - heen HEENT History: Chipped or Loose Teeth Additional HEENT History: PT MISSING SEVERAL TEETH/RIGHT SIDE LOWER CHIPPED TOOTH WITH CAVITIES. Cardiovascular History: Aneurysm Additional Cardiovasular History: PT WAS TOLD 2 YRS AGO THAT THE ANESTHESIA SAW A "BLIP" ON THE SCREEN AND TOLD HAD A NV BUT NOTHING ELSE WAS DONE AND NO REFERRAL TO HEART DOCTOR. Respiratory History: Snoring Additional Respiratory History: PNEUMONIA IN THE PAST USUALLY AFTER THE WINTER. STATES HAD CHEST COLD OF SOME KIND LAST WEEK. STILL A LITTLE COUGH RESIDUAL, SEASONAL ALLERGIES Gastrointestinal History: Denies History Genitourinary History: Denies History Endocrine History: Denies History Musculoskeletal History: Arthritis, Back Pain Prosthesis or Implant: No Additional Musculoskeletal History: LUMBAR BACK SURGERY Neurological History: Denies History Blood Disorders: Denies History Psychiatric History: Denies History History of Sexually Transmitted Diseases: No Cancer History: Denies History History of MDRO: No History of Other Communicable Diseases: No Alcohol Use: Occasionally In the Past 12 Months, Have Used or Abuse Any Substance: None Previous Surgical History: Yes Type / Date of Surgery: LUMBAR DISC SURGERY / LEFT KNEE SCOPE/ ABSCESS OF BUTTOCKS/TONSILS/L RCR Anesthesia Reactions: No Malignant Hyperthermia: No Significant Family History: Heart disease Additional Family History: Father and Brother both of [place] Past Medical History Reviewed: Reviewed - No Changes ROS - Limitations ROS Limitations: No Limitations Constitution: REPORTS: Denies Symptoms Cardiovascular: REPORTS: Chest Pain (Earlier today, as above) Respiratory: REPORTS: Denies Resp Symptoms Neurological: REPORTS: Tingling, Numbness (Left side of face, left arm and left side of tongue) Gastrointestinal: REPORTS: Denies GI Symptoms Endocrine: REPORTS: Denies Symptoms Musculoskeletal: REPORTS: Denies MS Symptoms Genitourinary: REPORTS: Denies Symptoms Eyes: REPORTS: Denies Symptoms ENT: REPORTS: Denies Symptoms Skin: REPORTS: Denies Skin Symptoms Lympathic: REPORTS: Denies Lympathic Symptoms Immunologic: POSITIVE: Denies Symptoms Psychiatric: POSITIVE: Denies Psych Symptoms Neuro Symptoms / Deficit Exam - General Appearance General Appearance: POSITIVE: No Acute Distress, Alert - HEENT HEENT: POSITIVE: Head Inspection Nml, Eyes Inspection Nml, Ears Inspection Nml, Nose Inspection Nml, Oral/Dental Inspect. Nml, Pharynx Inspect. Nml, PERRL, EOMI - Pupil Size Pupil Size: 3 mm: Bilateral (PERRLA) - Neuro / Psych Higher Functions: POSITIVE: Oriented to Person, Oriented to Place, Oriented to Time, Normal Speech, Normal Cognition, Appropriate Mood, Appropriate Affect. NEGATIVE: Disoriented to Person, Disoriented to Place, Disoriented to Time, Speech Abnormalities, Cognition Abnormalities, Depressed Mood, Depressed Affect , Abnml Response to Command, No Response to Command, Eyes Open to Command, Slow Response to Command, Inapp Response to Command, Expressive Aphasia, Receptive Aphasia, Abnml Response to Pain, Withdraws to Pain, Flexor to Pain, Extensor to Pain, No Response to Pain, Dysarthria, Other Cranial Nerves: POSITIVE: Normal As Tested, No Evidence of Acute CVA Cerebellar: POSITIVE: Normal As Tested Peripheral Exam: POSITIVE: Sensation Normal, Motor Normal, Reflexes Normal - Neck Neck: POSITIVE: Supple, Non-Tender, No Carotid Bruit - Respiratory Respiratory: POSITIVE: No Respiratory Distress, Breath Sounds Normal - Cardiovascular Cardiovascular: POSITIVE: Regular Rate & Rhythm, Heart Sounds Normal Peripheral Pulses: Radial (R): 2+, Radial (L): 2+ - Abdomen Abdomen: Soft: (All Quadrants), Normal Bowel Sounds: (All Quadrants), Denies Tenderness: (All Quadrants), No Splenomegaly: (All Quadrants), No Hepatomegaly: (All Quadrants), No Guarding: (All Quadrants), No Rebound: (All Quadrants), No Palpable Pulse: (All Quadrants), No Palpabale Mass: (All Quadrants), No Distention: (All Quadrants), No Rigidity: (All Quadrants) - Skin Skin: POSITIVE: Intact, Normal For Race, Warm, Dry, No Rash - Extremities Extremity: Non-Tender: (All Extremities), Normal ROM: (All Extremities), Normal Inspection: (All Extremities) Images - Complete Complete: 1 - Area of numbness 2 - Area of numbness Neuro Symptom/Deficit Progress - Results Reviewed by me Xrays/CTs/US Reviewed by me: Yes Discussed with Radiologist: Yes Radiology Findings: CT scan of head and MRI of brain done this morning showed normal CT scan of head. MRI of brain showed to small foci of abnormal a restricted diffusion involving the right frontal parietal and right temporal region compatible with small ischemic stroke; see initial comments. Lab Results Reviewed by Me: Yes (repeat troponin normal) - Patient's Progress Pain Medication Addressed: POSITIVE: Not Applicable School/Work Release Addressed: POSITIVE: Not Applicable Re-Examine Time:: 20:45 Re-Examine Comment: Patient stable while in the emergency room Status: POSITIVE: Unchanged, Re-Examined - Consult Consult (If Yes, Name of Consulting MD & Time Called): Yes (Dr. Diaz, hospitalist, [id number]) Consulting MD will see pt:: POSITIVE: [facility] [place] Admit Counseled: POSITIVE: Patient, Family, RE: Lab Results (From this morning), RE: Radiology Results (From this morning), RE: DX, RE: Need for F/U Patient Care Time - Estimated PCT Patient Care Time (In Minutes): 35 Vital Signs - Recent Vital Signs Vital Signs: Blood pressure 147/91, heart rate 64, respiratory rate 17, temperature 97.8F oxygen saturation on room air 95% - VS Reviewed Vital Signs Reviewed: Yes Discharge Clinical Impression: Transient ischemic attack Discharge Disposition: Admit to Inpatient Condition: Good Follow Up With: SUNSHINE ÁLVAREZ [Primary Care Provider] - Date Decision to Admit to Inpatient: 03/12/17 Time Decision to Admit to Inpatient: 20:35
[2017-03-12] MEDS ORDERED: NORMAL SALINE 10 ML SYRINGE FLUSH IVP PRN (21:37)
[2017-03-12] MEDS ORDERED: LIDOCAINE W/ SODIUM BICARB 0.5 ML SYR SUBD PRN (21:37)
[2017-03-12] MEDS ORDERED: Influenza 17-18 Vaccine (6mo+) Quad 60mcg/0.5ml PF IM ONE (21:56)
[2017-03-12] MEDS ORDERED: NICOTINE 21 MG /DAY PATCH TRANSDERM ONE (22:07)
[2017-03-12] MEDS: NICOTINE 21 MG /DAY PATCH TRANSDERM SCH (22:08)
[2017-03-12] MEDS: Sodium Chloride 0.9% 1,000 ML PRIMARY IV SCH (22:08)
[2017-03-13 00:28] VITALS: RESP 20
[2017-03-13] MEDS ORDERED: ACETAMINOPHEN 500 MG TABLET PO PRN (02:30)
[2017-03-13] MEDS: Sodium Chloride 0.9% 1,000 ML PRIMARY IV SCH (06:15)
[2017-03-13 06:38] LABS: Hematocrit [HCT] 45.4 % (42.0-52.0); Hemoglobin [HGB] 15.4 g/dL (14.0-18.0); MEAN CORPUSCULAR HEMOGLOBIN 31.5 PG (27-31); MEAN CORPUSCULAR VOLUME 93 FL (80-90); MEAN PLATELET VOLUME 7.8 FL (7.4-12.2); RED BLOOD COUNT 4.89 10^6/uL (4.70-6.10)
[2017-03-13 06:39] LABS: BASOPHILS # (AUTO) 0.05 10*3/UL; BASOPHILS % (AUTO) 0.6 % (0-1); EOSINOPHILS # (AUTO) 0.47 10*3/UL; EOSINOPHILS % (AUTO) 5.7 % (0-8); LYMPHOCYTES # (AUTO) 2.34 10*3/uL; MONOCYTES # (AUTO) 0.82 10*3/UL (0.3-0.8); NEUTROPHILS # (AUTO) 4.54 10*3/UL; NEUTROPHILS % (AUTO) 55.2 % (50-80); PLATELET MORPHOLOGY COMMENT NORMAL MORPHOLOGY (NORM); RBC MORPHOLOGY COMMENT NORMAL MORPHOLOGY (NORM); WBC MORPHOLOGY COMMENT NORMAL MORPHOLOGY (NORM)
[2017-03-13 06:42] LABS: BLOOD UREA NITROGEN 13 mg/dL (7-22); BUN/CREATININE RATIO 14.44 (6-20); SERUM ALBUMIN 3.4 g/dL (3.5-4.8)
[2017-03-13] MEDS: NICOTINE 21 MG /DAY PATCH TRANSDERM SCH (08:19)
[2017-03-13] MEDS ORDERED: ATENOLOL 25 MG TABLET PO SCH (09:00)
[2017-03-13] MEDS ORDERED: ASPIRIN 325 MG TABLET PO SCH (09:00)
[2017-03-13] MEDS ORDERED: ATORVASTATIN 40 MG TABLET PO SCH (09:00)
[2017-03-13] MEDS ORDERED: Multivitamin Tab 1 TAB PO SCH (09:00)
[2017-03-13] MEDS ORDERED: ACETAMINOPHEN 500 MG TABLET PO ONE (09:11)
[2017-03-13] MEDS ORDERED: LORATADINE 10 MG TABLET PO SCH (09:30)
--- NOTE | 2017-03-13 10:47 | PTI REPORT ---
Thank you for the referral of Berlin Palumbo. He was seen on 03/13/17 for an inpatient evaluation secondary to a possible CVA. SUBJECTIVE: The patient is a 56-year-old male. The patient reports he is doing fine. He has no more numbness or tingling. He states he feels strong and he denies any chest pain or any other pain or numbness. The patient states he is ready to go home. PAST MEDICAL HISTORY: Past medical history can be found in the patient's medical record. OBJECTIVE FINDINGS: Range of motion: Range of motion is within functional limits throughout bilateral lower extremities. Strength: Manual muscle testing reveals strength of 5/5 in bilateral hip flexion. The patient refused to continue testing at that time. Bed mobility/Transfers: The patient is able to complete bed mobility and sit to stand transfers independently. Ambulation: The patient was able to ambulate 100 feet with no assistive device and supervision, at which point the patient refused to continue ambulation. Balance: The patient has good static and dynamic sitting and standing balance. Coordination: The patient's coordination is intact. Motor components of facial cranial nerves are intact. The patient declined to continue with activities testing coordination and dysdiadochokinesia. He states he is refusing continued physical therapy ASSESSMENT: The patient has good balance and good hip flexion bilaterally. Further testing was not able to be done due to patient refusal. The patient is safe with transfers and demonstrates good static and dynamic balance with standing. The patient is not a good candidate for continued skilled care as the patient has good functional strength and independence with mobility and ambulation. TREATMENT PLAN: Patient refuses continued physical therapy. INITIAL TREATMENT: Treatment today consisted of initial evaluation followed by ambulation, range of motion, transfers, bed mobility activity, and manual muscle testing of hips. The patient refused to continue physical therapy. [facility]
[2017-03-13 11:11] LABS: CHOL/HDL RATIO 4.8 RATIO (0-4.0)
--- NOTE | 2017-03-13 12:41 | DI ---
MRI MRA Head WO Contrast,03/13/2017 10:17 AM: Clinical History: Frontoparietal strokes. Previous Exam: CT head performed March 12, 2017 Findings: Multiplanar MR images are obtained through the brain following a 3-D [id number] protocol. The [place] of Em is unremarkable. The distal internal carotid arteries are normal as well as the vertebral artery. The middle cerebral arteries are unremarkable. The basilar artery and visualized portions of the vertebral arteries is normal. There is some paranasal sinus disease which is not well evaluated on this exam. The anterior cerebral arteries and the anterior communicating artery are normal. The posterior communicating arteries are diminutive and only the left is visible. Impression: Normal MRA brain.
[2017-03-13 14:34] VITALS: TEMP 97.9
--- NOTE | 2017-03-13 15:32 | PDOC ---
HPI - History of Present Illness Date of Service: 03/13/17 Time of Service: 15:30 Chief Complaint: Tingling in fingers and headache History of Present Illness: This very pleasant 56-year-old male with known hypertension, tobacco abuse, and aortic aneurysm, who presents with headache and tingling in his fingers over the last 2-3 days. Initially this presented and he didn't think much of it, was able to complete his chores at home, but it returned. He came in for evaluation and was found to have a couple of small parietal ischemic strokes. His CT scan of his brain was negative for any acute bleed. He left AGAINST MEDICAL ADVICE but at the urging of his , came back in for evaluation. Thus far, he's had a brain MRA scan which showed normal caliber blood vessels. We are waiting on an MRA scan of the neck, as well as an echocardiogram. I am told however today that we will not be able to get the echocardiogram day as our tech is out sick. The patient states his symptoms have completely resolved. He has never been diagnosed with atrial fibrillation. I am going to order an EKG. His lipid panel did reveal hypercholesterolemia. He states he is doing okay in terms of smoking cessation with a patch on currently. There were no exacerbating factors and he did not try any interventions to make things better prior to coming in for evaluation. Past Medical History Medical History: 1. Hypertension. 2. Tobacco abuse. 3. Aortic aneurysm Surgical History: 1. Shoulder surgery Pertinent Family History: Father of heart complications but had alcohol abuse as well. Past Social History: Patient smokes. Occasionally drinks alcohol. Has 4 children. Tobacco Use: Current Every Day Smoker In the Past 12 Months, Have Used or Abuse Any of the Following Substance: None Alcohol Use: Occasionally Medication / Allergies Home Medications: Home Medications Medication Instructions Recorded Confirmed Type Atenolol 1 tab PO DAILY #90 tab 10/23/16 03/12/17 Rx Aspirin 81 mg PO DAILY 03/12/17 03/12/17 History Guaifenesin [Mucinex] 600 mg PO Q12H PRN 03/12/17 03/12/17 History Loratadine 10 mg PO DAILY 03/12/17 03/12/17 History Multivitamin [Men's Multi-Vitamin] 1 ea PO DAILY 03/12/17 03/12/17 History Allergies/Adverse Reactions: Allergies 3 Allergy/AdvReac Type Severity Reaction Status Date / Time No Known Allergies Allergy Verified 03/13/17 07:02 Review of Systems - Review of Systems All Systems: Reviewed & No Additional Complaints Except as Stated (I did a 12 point review systems and it is negative other than that discussed below and that noted in history present illness.) - Respiratory Respiratory: REPORTS: Negative System Review - Cardiovascular Cardiovascular: REPORTS: Chest Pain (With recent cough, intermittent, resolved.) - Gastrointestinal Gastrointestinal / Abdominal: REPORTS: Negative System Review - Neurological Neurologic: REPORTS: See HPI Exam - Vitals Vital Signs: Vital Signs Vital Signs - Last Taken Temperature 97.9 F 03/13/17 13:00 Pulse Rate 59 L 03/13/17 13:00 Respiratory Rate 20 03/13/17 13:00 Blood Pressure 152/84 03/13/17 13:00 Pulse Ox 96 03/13/17 13:00 Height 5 ft 7 in Weight 252 lb 6.4 oz - General General Appearance: No Acute Distress, Cooperative - Head Head Exam: Normal Inspection, Normocephalic, Atraumatic - Eye Eye Exam: POSITIVE: No Scleral Icterus - ENT ENT Exam: POSITIVE: Mucous Membranes Moist - Neck Neck Exam: Normal Inspection, No Tenderness, No Lymphadenopathy, No Thyromegaly - Respiratory Respiratory Exam: POSITIVE: Clear to Auscultation - Bilaterally, Breathing Non Labored, Normal to Percussion and Palpation - Cardiovascular Cardiovascular Exam: POSITIVE: RRR, No Murmur, No Clicks, No Gallops, No Rubs, No JVD - GI/Abdominal GI/Abdominal Exam: POSITIVE: Normal Bowel Sounds, Non Tender, Non Distended, Soft - Rectal Rectal Exam: POSITIVE: Deferred - External Exam: POSITIVE: Deferred Exam: POSITIVE: Deferred - Extremities Extremities Exam: POSITIVE: No Clubbing Present, No Edema Present, No Cyanosis Present - Back Back Exam: POSITIVE: Normal Inspection, No CVA Tenderness - Neurological Neurological Exam: POSITIVE: Alert, Oriented x 3, No Facial Droop, Speech Intact / Clear, Moves All Extremities Equally - Psychiatric Psychiatric Exam: POSITIVE: Normal Affect, Normal Mood Results - Labs CBC and BMP: 03/13/17 06:03 03/13/17 06:03 Additional Lab Results: Laboratory Results 03/12/17 03/13/17 03/13/17 Range/Units 19:20 01:22 06:03 WBC 8.2 (4.8-10.8) 10^3/uL RBC 4.89 (4.70-6.10) 10^6/uL Hgb 15.4 (14.0-18.0) g/dL Hct 45.4 (42.0-52.0) % MCV 93 H (80-90) FL MCH 31.5 H (27-31) PG MCHC 34.0 (33-37) g/dL RDW Coeff of Basil 13.1 (11.5-14.5) % Plt Count 186 (140-350) 10*3/uL MPV 7.8 (7.4-12.2) FL Neut % (Auto) 55.2 (50-80) % Lymph % (Auto) 28.5 (10-50) % [place] % (Auto) 10.0 (5-15) % Eos % (Auto) 5.7 (0-8) % Baso % (Auto) 0.6 (0-1) % Neut # (Auto) 4.54 10*3/UL Lymph # (Auto) 2.34 10*3/uL [place] # (Auto) 0.82 H (0.3-0.8) 10*3/UL Eos # (Auto) 0.47 10*3/UL Baso # (Auto) 0.05 10*3/UL WBC Morphology Comment Normal morphology (NORM) Plt Morphology Comment Normal morphology (NORM) RBC Morph Comment Normal morphology (NORM) ESR (0-15) MM/HR Sodium (135-145) meq/L Potassium (3.8-5.2) meq/L Chloride (98-112) meq/L Carbon Dioxide (23-33) meq/L Anion Gap (5-20) BUN (7-22) mg/dL Creatinine (0.70-1.50) mg/dL Estimated GFR (>60 ml/min/1.73m(2)) BUN/Creatinine Ratio (6-20) Glucose (78-110) mg/dL Calculated Osmolality (267-292) mOsm/kg Calcium (8.7-10.7) mg/dL Total Bilirubin (0.3-1.2) mg/dL AST (21-57) IU/L ALT (21-72) IU/L Alkaline Phosphatase (38-126) IU/L Troponin I < 0.012 < 0.012 (< 0.040) ng/mL Total Protein (6.1-8.0) g/dL Albumin (3.5-4.8) g/dL Globulin (2.50-4.10) g/dL Albumin/Globulin Ratio (1.3-2.0) mg/g Triglycerides (44-200) mg/dL Cholesterol (120-200) mg/dL LDL Cholesterol, Calc mg/dL VLDL Cholesterol (0-40) mg/dL HDL Cholesterol (40-150) mg/dL Cholesterol/HDL Ratio (0-4.0) RATIO TSH (0.2700-4.2000) uIU/mL Free T4 (0.93-1.71) ng/dL 03/13/17 03/13/17 03/13/17 Range/Units 06:03 10:57 10:57 WBC (4.8-10.8) 10^3/uL RBC (4.70-6.10) 10^6/uL Hgb (14.0-18.0) g/dL Hct (42.0-52.0) % MCV (80-90) FL MCH (27-31) PG MCHC (33-37) g/dL RDW Coeff of Basil (11.5-14.5) % Plt Count (140-350) 10*3/uL MPV (7.4-12.2) FL Neut % (Auto) (50-80) % Lymph % (Auto) (10-50) % [place] % (Auto) (5-15) % Eos % (Auto) (0-8) % Baso % (Auto) (0-1) % Neut # (Auto) 10*3/UL Lymph # (Auto) 10*3/uL [place] # (Auto) (0.3-0.8) 10*3/UL Eos # (Auto) 10*3/UL Baso # (Auto) 10*3/UL WBC Morphology Comment (NORM) Plt Morphology Comment (NORM) RBC Morph Comment (NORM) ESR 7 (0-15) MM/HR Sodium 139 (135-145) meq/L Potassium 4.2 (3.8-5.2) meq/L Chloride 110 (98-112) meq/L Carbon Dioxide 21 L (23-33) meq/L Anion Gap 8 (5-20) BUN 13 (7-22) mg/dL Creatinine 0.9 (0.70-1.50) mg/dL Estimated GFR > 60 (>60 ml/min/1.73m(2)) BUN/Creatinine Ratio 14.44 (6-20) Glucose 86 (78-110) mg/dL Calculated Osmolality 286.0 (267-292) mOsm/kg Calcium 8.5 L (8.7-10.7) mg/dL Total Bilirubin 0.5 (0.3-1.2) mg/dL AST 40 (21-57) IU/L ALT 41 (21-72) IU/L Alkaline Phosphatase 65 (38-126) IU/L Troponin I (< 0.040) ng/mL Total Protein 6.4 (6.1-8.0) g/dL Albumin 3.4 L (3.5-4.8) g/dL Globulin 3.0 (2.50-4.10) g/dL Albumin/Globulin Ratio 1.10 L (1.3-2.0) mg/g Triglycerides 101 (44-200) mg/dL Cholesterol 173 (120-200) mg/dL LDL Cholesterol, Calc 116.800 mg/dL VLDL Cholesterol 20 (0-40) mg/dL HDL Cholesterol 36 L (40-150) mg/dL Cholesterol/HDL Ratio 4.80 H (0-4.0) RATIO TSH (0.2700-4.2000) uIU/mL Free T4 (0.93-1.71) ng/dL 03/13/17 Range/Units 10:57 WBC (4.8-10.8) 10^3/uL RBC (4.70-6.10) 10^6/uL Hgb (14.0-18.0) g/dL Hct (42.0-52.0) % MCV (80-90) FL MCH (27-31) PG MCHC (33-37) g/dL RDW Coeff of Basil (11.5-14.5) % Plt Count (140-350) 10*3/uL MPV (7.4-12.2) FL Neut % (Auto) (50-80) % Lymph % (Auto) (10-50) % [place] % (Auto) (5-15) % Eos % (Auto) (0-8) % Baso % (Auto) (0-1) % Neut # (Auto) 10*3/UL Lymph # (Auto) 10*3/uL [place] # (Auto) (0.3-0.8) 10*3/UL Eos # (Auto) 10*3/UL Baso # (Auto) 10*3/UL WBC Morphology Comment (NORM) Plt Morphology Comment (NORM) RBC Morph Comment (NORM) ESR (0-15) MM/HR Sodium (135-145) meq/L Potassium (3.8-5.2) meq/L Chloride (98-112) meq/L Carbon Dioxide (23-33) meq/L Anion Gap (5-20) BUN (7-22) mg/dL Creatinine (0.70-1.50) mg/dL Estimated GFR (>60 ml/min/1.73m(2)) BUN/Creatinine Ratio (6-20) Glucose (78-110) mg/dL Calculated Osmolality (267-292) mOsm/kg Calcium (8.7-10.7) mg/dL Total Bilirubin (0.3-1.2) mg/dL AST (21-57) IU/L ALT (21-72) IU/L Alkaline Phosphatase (38-126) IU/L Troponin I (< 0.040) ng/mL Total Protein (6.1-8.0) g/dL Albumin (3.5-4.8) g/dL Globulin (2.50-4.10) g/dL Albumin/Globulin Ratio (1.3-2.0) mg/g Triglycerides (44-200) mg/dL Cholesterol (120-200) mg/dL LDL Cholesterol, Calc mg/dL VLDL Cholesterol (0-40) mg/dL HDL Cholesterol (40-150) mg/dL Cholesterol/HDL Ratio (0-4.0) RATIO TSH 1.05 (0.2700-4.2000) uIU/mL Free T4 0.97 (0.93-1.71) ng/dL - EKG Data -: EKG Interpreted by Me (I am going to order an EKG.) Rate: Bradycardia (Most recent EKG done on 03/12/2017 showed sinus bradycardia on my view of the tracing.) Assessment and Plan - Patient Problems (1) Stroke Current Visit: Yes Status: Acute Code(s): I63.9 - Cerebral infarction, unspecified Qualifiers: CVA mechanism: unspecified Qualified Code(s): I63.9 - Cerebral infarction, unspecified (2) Hypertension Current Visit: Yes Status: Acute Code(s): I10 - Essential (primary) hypertension Qualifiers: Hypertension type: essential hypertension Qualified Code(s): I10 - Essential (primary) hypertension (3) Tobacco abuse Current Visit: Yes Status: Acute Code(s): Z72.0 - Tobacco use (4) Thoracic aortic aneurysm Current Visit: Yes Status: Chronic Code(s): I71.2 - Thoracic aortic aneurysm , without rupture Qualifiers: Presence of rupture: without rupture Qualified Code(s): I71.2 - Thoracic aortic aneurysm, without rupture - Assessment / Plan Additional Assessment/Plan Details: Admit the patient. Get an MRA scan of the neck and head. Evaluate the carotid arteries. Given the lipid panel findings, start Lipitor, and keep him on this. Smoking cessation education, discussed this at bedside and the patient would like to continue with nicotine patches. Blood pressure control and possible additional blood pressure medications in the coming week. Her now permissive hypertension. Patient will need an echocardiogram but given that we were not be able to get it today, may try to arrange with [facility] in the next 24 hours. Anticoagulant versus antiplatelet. At this point, continue aspirin at full dose , but may need to move to Plavix as he was on aspirin prior to this hospital stay. In discussed the plan with the patient and he agreed.
--- NOTE | 2017-03-13 17:19 | DI ---
MRI MRA Neck WO Contrast,03/13/2017 7:00 AM: Clinical History: Cerebrovascular accident. Previous Exam: None at this facility. Findings: Multiplanar MR images are obtained through the neck following an MR 2-D [id number] protocol, and demonstrates limited evaluation of the aortic arch and origins of the carotid arteries and vertebral arteries. The carotid arteries demonstrate normal course and caliber with normal carotid bulbs. The internal ca rotid artery demonstrates a normal course and caliber as well. The vertebral arteries are within norm al limits. The basilar artery is normal throughout its visualized portions. Impression: Normal MRA neck.
[2017-03-13] MEDS ORDERED: CLOPIDOGREL 75 MG TABLET PO ONE (17:36)
[2017-03-13 17:39] VITALS: BP 128/77; O2SAT 94
--- NOTE | 2017-03-13 17:48 | DCSUMMARY ---
Hospitalization Summary Admit Date: 03/13/2017 Discharge Date: 03/13/17 Primary Diagnosis:: left frontal parietal strokes, in situ ischemic Hospital Course: This is a 56-year-old male who came in with some tingling in his fingers bilaterally that was short-lived, and headaches. He appears to have on his brain MRI scan some left frontal parietal strokes. He smokes, is on atenolol for a thoracic aneurysm, but does not have diabetes and his cholesterol was found to be elevated. He is recovered in terms of all of his symptoms. He is on aspirin normally, so we are switching that to Plavix. He did not require any physical therapy, occupational therapy, or other therapies in relation to his stroke. MRA scan of the brain and the neck were negative. We cannot do an echocardiogram but he recently had one in October and I confirmed that with his cardiology office. I am repeating an echocardiogram on 03/17/2017, at 8 :45 AM. I gave the patient his prescription for that and we'll fax the order to [facility]. At this time, I have not found any atrial fibrillation with cardiac monitoring during the hospital stay. We will continue with Plavix and antiplatelet therapy for his stroke prevention strategy , along with the addition of Lipitor. I am doing high-dose Lipitor. We spoke at length regarding smoking cessation and strategies for that. The patient would like to go ahead and continue his nicotine patches for this. He states it's been working very well in the hospital. Given no complaints of chest pain, shortness breath, nausea or vomiting, muscle weakness, slurred speech, or other complaints, the patient is subsequently discharged. Assessment and Plan: 1. As per discharge assessments noted 2. Disposition: Patient is discharged home. 3. Condition on discharge, stable and improved. 4. Diet: regular diet 5. Activities: resume normal activities 6. Follow-Up: 1. Dr. Stephens in 1 week 2. Maintain cardiology follow-up on March 24. 7. Medications at the Time of Discharge: Home Medications Medication Instructions Recorded Confirmed Type Atenolol 1 tab PO DAILY #90 tab 10/23/16 03/12/17 Rx Loratadine 10 mg PO DAILY 03/12/17 03/12/17 History Multivitamin [Men's Multi-Vitamin] 1 ea PO DAILY 12/06/17 12/06/17 History Atorvastatin Calcium [Lipitor] 80 mg PO QPM #30 tab 03/13/17 Rx Clopidogrel [Plavix] 75 mg PO DAILY #30 tab 03/13/17 Rx Nicotine 21mg Patch [Nicoderm CQ 1 patch TRANSDERM DAILY #30 patch 03/13/17 Rx 21mg Patch] 8. Time, care, counseling and coordination of care for this discharge is greater than 30 minutes. Exam - Vitals Vital Signs: Vital Signs Vital Signs - Last Taken Temperature 97.9 F 03/13/17 17:00 Pulse Rate 54 L 03/13/17 17:00 Respiratory Rate 20 03/13/17 17:00 Blood Pressure 128/77 03/13/17 17:00 Pulse Ox 94 03/13/17 17:00 See the history and physical exam dictated earlier today. Data Peritnent Studies: Laboratory Results 03/12/17 03/13/17 03/13/17 Range/Units 19:20 01:22 06:03 WBC 8.2 (4.8-10.8) 10^3/uL RBC 4.89 (4.70-6.10) 10^6/uL Hgb 15.4 (14.0-18.0) g/dL Hct 45.4 (42.0-52.0) % MCV 93 H (80-90) FL MCH 31.5 H (27-31) PG MCHC 34.0 (33-37) g/dL RDW Coeff of Basil 13.1 (11.5-14.5) % Plt Count 186 (140-350) 10*3/uL MPV 7.8 (7.4-12.2) FL Neut % (Auto) 55.2 (50-80) % Lymph % (Auto) 28.5 (10-50) % [place] % (Auto) 10.0 (5-15) % Eos % (Auto) 5.7 (0-8) % Baso % (Auto) 0.6 (0-1) % Neut # (Auto) 4.54 10*3/UL Lymph # (Auto) 2.34 10*3/uL [place] # (Auto) 0.82 H (0.3-0.8) 10*3/UL Eos # (Auto) 0.47 10*3/UL Baso # (Auto) 0.05 10*3/UL WBC Morphology Comment Normal morphology (NORM) Plt Morphology Comment Normal morphology (NORM) RBC Morph Comment Normal morphology (NORM) ESR (0-15) MM/HR Sodium (135-145) meq/L Potassium (3.8-5.2) meq/L Chloride (98-112) meq/L Carbon Dioxide (23-33) meq/L Anion Gap (5-20) BUN (7-22) mg/dL Creatinine (0.70-1.50) mg/dL Estimated GFR (>60 ml/min/1.73m(2)) BUN/Creatinine Ratio (6-20) Glucose (78-110) mg/dL Calculated Osmolality (267-292) mOsm/kg Calcium (8.7-10.7) mg/dL Total Bilirubin (0.3-1.2) mg/dL AST (21-57) IU/L ALT (21-72) IU/L Alkaline Phosphatase (38-126) IU/L Troponin I < 0.012 < 0.012 (< 0.040) ng/mL Total Protein (6.1-8.0) g/dL Albumin (3.5-4.8) g/dL Globulin (2.50-4.10) g/dL Albumin/Globulin Ratio (1.3-2.0) mg/g Triglycerides (44-200) mg/dL Cholesterol (120-200) mg/dL LDL Cholesterol, Calc mg/dL VLDL Cholesterol (0-40) mg/dL HDL Cholesterol (40-150) mg/dL Cholesterol/HDL Ratio (0-4.0) RATIO TSH (0.2700-4.2000) uIU/mL Free T4 (0.93-1.71) ng/dL 03/13/17 03/13/17 03/13/17 Range/Units 06:03 10:57 10:57 WBC (4.8-10.8) 10^3/uL RBC (4.70-6.10) 10^6/uL Hgb (14.0-18.0) g/dL Hct (42.0-52.0) % MCV (80-90) FL MCH (27-31) PG MCHC (33-37) g/dL RDW Coeff of Basil (11.5-14.5) % Plt Count (140-350) 10*3/uL MPV (7.4-12.2) FL Neut % (Auto) (50-80) % Lymph % (Auto) (10-50) % [place] % (Auto) (5-15) % Eos % (Auto) (0-8) % Baso % (Auto) (0-1) % Neut # (Auto) 10*3/UL Lymph # (Auto) 10*3/uL [place] # (Auto) (0.3-0.8) 10*3/UL Eos # (Auto) 10*3/UL Baso # (Auto) 10*3/UL WBC Morphology Comment (NORM) Plt Morphology Comment (NORM) RBC Morph Comment (NORM) ESR 7 (0-15) MM/HR Sodium 139 (135-145) meq/L Potassium 4.2 (3.8-5.2) meq/L Chloride 110 (98-112) meq/L Carbon Dioxide 21 L (23-33) meq/L Anion Gap 8 (5-20) BUN 13 (7-22) mg/dL Creatinine 0.9 (0.70-1.50) mg/dL Estimated GFR > 60 (>60 ml/min/1.73m(2)) BUN/Creatinine Ratio 14.44 (6-20) Glucose 86 (78-110) mg/dL Calculated Osmolality 286.0 (267-292) mOsm/kg Calcium 8.5 L (8.7-10.7) mg/dL Total Bilirubin 0.5 (0.3-1.2) mg/dL AST 40 (21-57) IU/L ALT 41 (21-72) IU/L Alkaline Phosphatase 65 (38-126) IU/L Troponin I (< 0.040) ng/mL Total Protein 6.4 (6.1-8.0) g/dL Albumin 3.4 L (3.5-4.8) g/dL Globulin 3.0 (2.50-4.10) g/dL Albumin/Globulin Ratio 1.10 L (1.3-2.0) mg/g Triglycerides 101 (44-200) mg/dL Cholesterol 173 (120-200) mg/dL LDL Cholesterol, Calc 116.800 mg/dL VLDL Cholesterol 20 (0-40) mg/dL HDL Cholesterol 36 L (40-150) mg/dL Cholesterol/HDL Ratio 4.80 H (0-4.0) RATIO TSH (0.2700-4.2000) uIU/mL Free T4 (0.93-1.71) ng/dL 03/13/17 Range/Units 10:57 WBC (4.8-10.8) 10^3/uL RBC (4.70-6.10) 10^6/uL Hgb (14.0-18.0) g/dL Hct (42.0-52.0) % MCV (80-90) FL MCH (27-31) PG MCHC (33-37) g/dL RDW Coeff of Basil (11.5-14.5) % Plt Count (140-350) 10*3/uL MPV (7.4-12.2) FL Neut % (Auto) (50-80) % Lymph % (Auto) (10-50) % [place] % (Auto) (5-15) % Eos % (Auto) (0-8) % Baso % (Auto) (0-1) % Neut # (Auto) 10*3/UL Lymph # (Auto) 10*3/uL [place] # (Auto) (0.3-0.8) 10*3/UL Eos # (Auto) 10*3/UL Baso # (Auto) 10*3/UL WBC Morphology Comment (NORM) Plt Morphology Comment (NORM) RBC Morph Comment (NORM) ESR (0-15) MM/HR Sodium (135-145) meq/L Potassium (3.8-5.2) meq/L Chloride (98-112) meq/L Carbon Dioxide (23-33) meq/L Anion Gap (5-20) BUN (7-22) mg/dL Creatinine (0.70-1.50) mg/dL Estimated GFR (>60 ml/min/1.73m(2)) BUN/Creatinine Ratio (6-20) Glucose (78-110) mg/dL Calculated Osmolality (267-292) mOsm/kg Calcium (8.7-10.7) mg/dL Total Bilirubin (0.3-1.2) mg/dL AST (21-57) IU/L ALT (21-72) IU/L Alkaline Phosphatase (38-126) IU/L Troponin I (< 0.040) ng/mL Total Protein (6.1-8.0) g/dL Albumin (3.5-4.8) g/dL Globulin (2.50-4.10) g/dL Albumin/Globulin Ratio (1.3-2.0) mg/g Triglycerides (44-200) mg/dL Cholesterol (120-200) mg/dL LDL Cholesterol, Calc mg/dL VLDL Cholesterol (0-40) mg/dL HDL Cholesterol (40-150) mg/dL Cholesterol/HDL Ratio (0-4.0) RATIO TSH 1.05 (0.2700-4.2000) uIU/mL Free T4 0.97 (0.93-1.71) ng/dL [facility] [address] [facility] [facility] [place] [address] PH: DD: [phone] FAX: [phone] ~DIAGNOSTIC IMAGING REPORT~ Patient: Berlin Alejandra : 1960 Sex: M Age: 56 Exam Name: MRI MRA Head WO Contrast Exam Date: 03/13/17 Report # : [id number] CPT Code: 25300 EMR/MR #: [id number] Ordering: TERRY ESCOBEDO Admiting: RORY DAN MD. Primary: Cristóbal Stephens MD Attending: RORY DAN MD. Signed MRI MRA Head WO Contrast,03/13/2017 10:17 AM: Clinical History: Frontoparietal strokes. Previous Exam: CT head performed March 12, 2017 Findings: Multiplanar MR images are obtained through the brain following a 3-D time-of- flight protocol. The [place] of [place] is unremarkable. The distal internal carotid arteries are normal as well as the vertebral artery. The middle cerebral arteries are unremarkable. The basilar artery and visualized portions of the vertebral arteries is normal. There is some paranasal sinus disease which is not well evaluated on this exam. The anterior cerebral arteries and the anterior communicating artery are normal. The posterior communicating arteries are diminutive and only the left is visible. Impression: Normal MRA brain. Dictated By: 03/13/17 1231 JAH RIVAS MD. Signed By: 03/13/17 1241 JAH RIVAS MD. [address] [facility] [place] [address] PH: DD: [phone] FAX: [phone] ~DIAGNOSTIC IMAGING REPORT~ Patient: Berlin Alejandra : 1960 Sex: M Age: 56 Exam Name: MRI MRA Neck WO Contrast Exam Date: 03/13/17 Report # : [id number] CPT Code: 37592 EMR/MR #: [id number] Ordering: RORY DAN Admiting: RORY DAN MD. Primary: Cristóbal Stephens MD Attending: RORY DAN MD. Signed MRI MRA Neck WO Contrast,03/13/2017 7:00 AM: Clinical History: Cerebrovascular accident. Previous Exam: None at this facility. Findings: Multiplanar MR images are obtained through the neck following an MR 2-D time-of- flight protocol, and demonstrates limited evaluation of the aortic arch and origins of the carotid arteries and vertebral arteries. The carotid arteries demonstrate normal course and caliber with normal carotid bulbs. The internal carotid artery demonstrates a normal course and caliber as well. The vertebral arteries are within normal limits. The basilar artery is normal throughout its visualized portions. Impression: Normal MRA neck. Dictated By: 03/13/17 1704 JAH RIVAS MD. Signed By: 03/13/17 1719 JAH RIVAS MD. [address] [facility]. [facility] [place] [address] PH: DD: [phone] FAX: [phone] ~DIAGNOSTIC IMAGING REPORT~ Patient: [place] Alejandra : 1960 Sex: M Age: 56 Exam Name: MRI Brain WO Contrast Exam Date: 03/12/17 Report # : [id number] CPT Code: 23237 EMR/MR #: [id number] Ordering: MING PEREZ Admiting: Primary: Cristóbal Stephens MD Attending: Signed MRI Brain WO Contrast,03/12/2017 12:41 PM: Clinical History: Headache and stroke symptoms. Previous Exam: None at this facility. Findings: Multiplanar MR images are obtained through the brain without contrast, and demonstrate mild symmetric volume loss. There is thickening of the mucoperiosteal lining of the ethmoid sinuses and the maxillary sinuses. There is 2 small foci of abnormally restricted diffusion involving the right frontoparietal and right temporal subcortical white matter. This does demonstrate some slight increased FLAIR signal. There is no abnormal T2 signal. The internal auditory canals are normal. The major vascular flow voids are also unremarkable. Impression: 1. Small foci of abnormal restricted diffusion corresponding with some increased FLAIR signal within the right frontoparietal subcortical white matter as well as the right temporal lobe. This is most consistent with small ischemic strokes. 2. Paranasal sinus disease. Dictated By: 03/12/17 1420 JAH RIVAS MD. Signed By: 03/12/17 1436 JAH RIVAS MD. Patient Problems - Patient Problem List (1) Stroke Current Visit: Yes Status: Acute Code(s): I63.9 - Cerebral infarction, unspecified Qualifiers: CVA mechanism: unspecified Qualified Code(s): I63.9 - Cerebral infarction, unspecified Category: Medical (2) Tobacco abuse Current Visit: Yes Status: Acute Code(s): Z72.0 - Tobacco use Category: Medical (3) Thoracic aortic aneurysm Current Visit: Yes Status: Chronic Code(s): I71.2 - Thoracic aortic aneurysm , without rupture Qualifiers: Presence of rupture: without rupture Qualified Code(s): I71.2 - Thoracic aortic aneurysm, without rupture Category: Medical (4) Hypercholesterolemia Current Visit: Yes Status: Acute Code(s): E78.00 - Pure hypercholesterolemia , unspecified Category: Medical (5) Tobacco abuse Current Visit: Yes Status: Acute Code(s): Z72.0 - Tobacco use Category: Medical (6) Tobacco abuse counseling Current Visit: Yes Status: Acute Code(s): Z71.6 - Tobacco abuse counseling Category: Medical
[2017-03-14] MEDS ORDERED: ASPIRIN EC 81 MG TABLET PO SCH (09:00)
[2017-03-14] MEDS ORDERED: LORATADINE 10 MG TABLET PO SCH (09:00)
[2017-03-14] MEDS ORDERED: CLOPIDOGREL 75 MG TABLET PO SCH (09:00)
[2017-03-14] MEDS ORDERED: Patch Removal PATCH TRANSDERM SCH (09:00)
--- NOTE | 2017-03-17 10:52 | OTI REPORT ---
Thank you for the referral of [place] Alejandra. He was seen on 03/13/17 for an occupational therapy inpatient evaluation secondary to a possible CVA. SUBJECTIVE: The patient is a 56-year-old male who had symptoms of a TIA. When he came in he had numbness and tingling of his mouth and tongue as well as shoulder and left handed weakness and numbness. The patient states right now he is not feeling any effects of that and he is feeling really good. 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 He is supposed to have a test here shortly, but he reports if it does not get done sooner than later he is going to leave anyway. The patient reports that he was independent with all activities of daily living prior to admission. PAST MEDICAL HISTORY: Past medical history can be found in the patient's medical record. OBJECTIVE FINDINGS: Oral motor: Today the patient was assessed in the oral region secondary to reports of mouth and tongue numbness and tingling. He was able to open and close mouth completely and there were no signs of facial drooping. He could lateralize to the left and the right. He had good tongue range of motion and was able to lateralize into the sulci of the mouth and click his tongue with good strength. Range of motion: The patient had good active range of motion of his bilateral upper extremities. He had good elbow range of motion as well as wrist flexion/ extension. Coordination: The patient was assessed on the left and the right with eyes closed. He was able to touch nose with fingertips with the left arm. Strength: The patient demonstrates 5/5 strength in the right shoulder, elbow, and wrist. Sensation: Overall the patient reports no sensation difficulties on the left side at this time. Transfers: The patient requires stand by assist to transfer from the bed to the sink. Once at the sink he was able to stand x3 minutes demonstrating good dynamic balance. ASSESSMENT: The patient is doing very well. He seems to have resolved the effects of the symptoms that he was experiencing early on. He states he is going to be leaving no matter what, so at this time the patient will be discharged from occupational therapy. Overall the patient seems to be doing well cognitively and physically. TREATMENT PLAN: Patient will be discharged from occupational therapy services at this time. INITIAL TREATMENT: Treatment today consisted of the initial evaluation activities only. JOSÉ LUIS
== END 2017-03-13 18:01 | disposition home or self-care (01) | DRG 66 ==
LOC: ER 19:15 → MED/SURG 21:24
PROVIDERS: ADMIT Internal Medicine; ATTEND Internal Medicine